=== PATIENT | male | born 1955 | race Caucasian/White ===

== ENCOUNTER 2022-04-10 23:06 | Inpatient (IN) ==
[2022-04-11] MEDS ORDERED: Melatonin 3 MG TABLET PO PRN (01:38)
[2022-04-11] MEDS ORDERED: Ondansetron 4 MG/2 ML VIAL IVP PRN (01:38)
[2022-04-11] MEDS ORDERED: Acetaminophen 325 MG TABLET PO PRN (01:38)
[2022-04-11] MEDS ORDERED: Naloxone 0.4 MG/ML INJ IVP PRN (01:38)
[2022-04-11] MEDS ORDERED: Dextrose Gel 15 GM/37.5 ML TUBE PO PRN ×2 (01:48)
[2022-04-11] MEDS ORDERED: D5% in Water 1,000 ML IVC PRN (01:48)
[2022-04-11] MEDS ORDERED: *HR* Dextrose 50 % in Water (Syg) 50 ML SYRINGE IVP PRN (01:48)
[2022-04-11] MEDS ORDERED: Thiamine (B-1) 100 MG in 0.9 % Sodium Chloride 50 ML IVPB STA (01:50)
[2022-04-11] MEDS ORDERED: *HR* LORazepam 2 MG/ML VIAL IVP PRN ×3 (01:50)
[2022-04-11] MEDS ORDERED: 0.9 % Sodium Chloride 1,000 ML IVC SCH (03:15)
[2022-04-11] MEDS: Calcium Gluconate 1gm/50mL 1 GM/50 ML BAG IVPB SCH ×2 (03:36→04:46)
[2022-04-11] MEDS: 0.9 % Sodium Chloride 1,000 ML IVC SCH ×2 (04:46→20:50)
[2022-04-11 04:47] LABS: INR 0.9; Prothrombin Time 10.2 Seconds (9.4-12.1)
[2022-04-11 04:49] LABS: Activated Partial Thrombo Time 26.8 Seconds (26.0-36.0)
[2022-04-11 04:58] LABS: % Iron Saturation 36 % (20-55); Alanine Aminotransferase 105 Units/L (7-52); Albumin 3.7 g/dL (3.5-5.7); Albumin/Globulin Ratio 1.5 (1.1-2.2); Alkaline Phosphatase 73 Units/L (34-104); Aspartate Amino Transferase 250 Units/L (13-39); BUN/Creatinine Ratio 9 (6-26); Bilirubin,Total 0.5 mg/dL (0.3-1.0); Blood Urea Nitrogen 6 mg/dL (8-23); Calcium 8.6 mg/dL (8.6-10.3); Carbon Dioxide 20 mEq/L (23-29); Chloride 99 mEq/L (98-107); Creatine Kinase 447 Units/L (30-223); Globulin 2.5 g/dL (2.4-3.5); Glucose 86 mg/dL (70-105); Iron 95 mcg/dL (65-175); Magnesium 1.6 mg/dL (1.6-2.6); Osmolality,Calculated 271 (280-300); Phosphorous 3.2 mg/dL (2.7-4.5); Potassium 4.5 mEq/L (3.5-5.1); Sodium 132 mEq/L (136-145); Total Protein 6.2 g/dL (6.4-8.9); Transferrin 187 mg/dL (203-362); eGFR For African Americans > 60 (> 60); eGFR For Non-African Americans > 60 (> 60)
[2022-04-11 05:16] LABS: Ferritin 561 ng/mL (20-250)
[2022-04-11 05:20] LABS: Bilirubin,Urine Negative (Negative); Blood,Urine Negative (Negative); Clarity,Urine Clear (Clear); Color,Urine Colorless (Yellow); Glucose,Urine (UA) Normal (Normal); Ketones,Urine Negative (Negative); Leukocyte Esterase,Urine Negative (Negative); Nitrite,Urine Negative (Negative); Protein,Urine Negative (Neg-Trace); Specific Gravity,Urine 1.006 (1.010-1.025); Urobilinogen,Urine Normal (Normal)
[2022-04-11 05:24] LABS: Folate 14.5 ng/mL (3.0-16.0)
[2022-04-11 06:24] LABS: Basophils % 0.3 %; Eosinophils % 0.3 %; Hematocrit 35.7 % (37.5-50.1); Hemoglobin 12.3 g/dL (12.9-16.9); Immature Granulocytes % 0.7 % (0-4); Lymphocytes # 1.4 K/mcL (0.6-4.6); Lymphocytes % 11.5 %; Mean Corpuscular HGB Conc 34.5 g/dL (31.6-35.5); Mean Corpuscular Hemoglobin 31.5 pg (28.0-33.3); Mean Corpuscular Volume 91.5 fL (83.0-100.0); Mean Platelet Volume 10.1 fL (9.4-12.4); Monocytes # 0.7 K/mcL (0.0-1.3); Monocytes % 5.9 %; Neutrophils # 9.6 K/mcL (1.6-8.9); Platelet Count 209 K/mcL (140-400); Red Cell Distribution Width 12.1 % (11.5-14.5); Segmented Neutrophils % 81.3 %; White Blood Count 11.8 K/mcL (4.3-11.1)
[2022-04-11 07:06] LABS: Hepatitis B Surface Antigen Nonreactive (Nonreactive)
[2022-04-11 07:35] LABS: Hepatitis B Core IgM Nonreactive (Nonreactive)
[2022-04-11 07:36] LABS: Hepatitis C Virus Antibody Nonreactive (Nonreactive)
[2022-04-11 07:37] LABS: Hepatitis A Antibody IgM Nonreactive (Nonreactive)
[2022-04-11] MEDS: Vitamin B Complex/Vit C/Vit E 1 EACH TABLET PO SCH (08:59)
[2022-04-11] MEDS: Folic Acid 1 MG TABLET PO SCH (09:00)
[2022-04-11] MEDS: NIFEdipine XL (24 HR) 30 MG TAB.ER.24 PO SCH (09:00)
[2022-04-11] MEDS: Aspirin 81 MG TAB.CHEW PO SCH (09:00)
[2022-04-11] MEDS: Thiamine (B-1) 100 MG TABLET PO SCH (09:00)
[2022-04-11] MEDS: lisinopriL 20 MG TABLET PO SCH (09:00)
[2022-04-11] MEDS ORDERED: *HR* Metoprolol 5 MG/5 ML VIAL IVP ONE (14:09)
[2022-04-12 03:05] VITALS: O2SAT 97
[2022-04-12 05:48] LABS: Basophils % 0.6 %; Eosinophils # 0.1 K/mcL (0.0-0.6); Eosinophils % 1.5 %; Hematocrit 33.3 % (37.5-50.1); Hemoglobin 11.1 g/dL (12.9-16.9); Immature Granulocytes % 0.4 % (0-4); Lymphocytes % 18.4 %; Mean Corpuscular HGB Conc 33.3 g/dL (31.6-35.5); Mean Corpuscular Hemoglobin 30.7 pg (28.0-33.3); Mean Corpuscular Volume 92.2 fL (83.0-100.0); Mean Platelet Volume 9.8 fL (9.4-12.4); Monocytes # 0.7 K/mcL (0.0-1.3); Monocytes % 12.5 %; Neutrophils # 3.6 K/mcL (1.6-8.9); Platelet Count 172 K/mcL (140-400); Red Blood Count 3.61 M/mcL (4.19-5.50); Red Cell Distribution Width 12.3 % (11.5-14.5); Segmented Neutrophils % 66.6 %
[2022-04-12 05:49] LABS: White Blood Count 5.4 K/mcL (4.3-11.1)
[2022-04-12 06:24] LABS: Alanine Aminotransferase 78 Units/L (7-52); Albumin 3.6 g/dL (3.5-5.7); Albumin/Globulin Ratio 1.6 (1.1-2.2); Alkaline Phosphatase 72 Units/L (34-104); Aspartate Amino Transferase 157 Units/L (13-39); BUN/Creatinine Ratio 12 (6-26); Bilirubin,Total 0.8 mg/dL (0.3-1.0); Blood Urea Nitrogen 9 mg/dL (8-23); Calcium 8.8 mg/dL (8.6-10.3); Carbon Dioxide 25 mEq/L (23-29); Chloride 100 mEq/L (98-107); Globulin 2.3 g/dL (2.4-3.5); Glucose 76 mg/dL (70-105); Osmolality,Calculated 277 (280-300); Potassium 4.3 mEq/L (3.5-5.1); Sodium 135 mEq/L (136-145); Total Protein 5.9 g/dL (6.4-8.9); eGFR For African Americans > 60 (> 60); eGFR For Non-African Americans > 60 (> 60)
[2022-04-12] MEDS: Folic Acid 1 MG TABLET PO SCH (08:26)
[2022-04-12] MEDS: Vitamin B Complex/Vit C/Vit E 1 EACH TABLET PO SCH (08:26)
[2022-04-12] MEDS: Aspirin 81 MG TAB.CHEW PO SCH (08:26)
[2022-04-12] MEDS: lisinopriL 20 MG TABLET PO SCH (08:26)
[2022-04-12] MEDS: NIFEdipine XL (24 HR) 30 MG TAB.ER.24 PO SCH (08:26)
[2022-04-12] MEDS: Thiamine (B-1) 100 MG TABLET PO SCH (08:29)
[2022-04-12] MEDS: 0.9 % Sodium Chloride 1,000 ML IVC SCH (10:49)
[2022-04-12 15:42] VITALS: BP 118/70; PULSE 91; TEMP 97.9
== END 2022-04-12 17:24 | disposition home or self-care (01) | DRG 897 ==
LOC: 3BNU → SUATTDRO 04-11 01:32
PROVIDERS: ADMIT Internal Medicine; ATTEND Registered Nurse

== ENCOUNTER 2022-05-02 21:07 | Inpatient (IN) ==
[2022-05-03] MEDS ORDERED: *HR* LORazepam 2 MG/ML VIAL IVP ONE (01:23)
[2022-05-03] MEDS ORDERED: Melatonin 3 MG TABLET PO PRN (01:26)
[2022-05-03] MEDS ORDERED: Ondansetron ODT 4 MG TAB.RAPDIS SL PRN (01:26)
[2022-05-03] MEDS ORDERED: Naloxone 0.4 MG/ML INJ IVP PRN (01:26)
[2022-05-03] MEDS ORDERED: *HR* LORazepam 2 MG/ML VIAL ONE (01:29)
[2022-05-03] MEDS ORDERED: *HR* LORazepam 2 MG/ML VIAL IVP PRN (01:33)
[2022-05-03 02:14] LABS: BUN/Creatinine Ratio 8 (6-26); Blood Urea Nitrogen 6 mg/dL (8-23); Calcium 8.3 mg/dL (8.6-10.3); Carbon Dioxide 21 mEq/L (23-29); Chloride 83 mEq/L (98-107); Glucose 120 mg/dL (70-105); Osmolality,Calculated 239 (280-300); Potassium 4.3 mEq/L (3.5-5.1); Sodium 115 mEq/L (136-145); eGFR For African Americans > 60 (> 60); eGFR For Non-African Americans > 60 (> 60)
[2022-05-03] MEDS ORDERED: 0.9 % Sodium Chloride 1,000 ML IVC SCH ×3 (02:30→19:48)
[2022-05-03] MEDS ORDERED: levETIRAcetam 1,000 MG in 0.9 % Sodium Chloride 100 ML IVPB ONE (03:04)
[2022-05-03] MEDS: *HR* LORazepam 2 MG/ML VIAL IVP PRN ×6 (03:43→23:37)
[2022-05-03] MEDS: Thiamine (B-1) 100 MG in 0.9 % Sodium Chloride 50 ML IVPB SCH (03:43)
[2022-05-03 04:15] LABS: Albumin 3.7 g/dL (3.5-5.7); Albumin/Globulin Ratio 1.6 (1.1-2.2); Bilirubin,Direct 0.5 mg/dL (0.0-0.2); Bilirubin,Indirect 1.4 mg/dL (0.0-1.0); Bilirubin,Total 1.9 mg/dL (0.3-1.0); Globulin 2.3 g/dL (2.4-3.5)
[2022-05-03 06:53] LABS: Magnesium 1.8 mg/dL (1.6-2.6)
[2022-05-03] MEDS: Folic Acid 1 MG TABLET PO SCH (07:36)
[2022-05-03] MEDS ORDERED: Thiamine (B-1) 100 MG TABLET PO SCH (09:00)
[2022-05-03 10:31] LABS: Hematocrit 33.4 % (37.5-50.1); Mean Corpuscular HGB Conc 35.9 g/dL (31.6-35.5); Mean Corpuscular Hemoglobin 31.7 pg (28.0-33.3); Mean Corpuscular Volume 88.4 fL (83.0-100.0); Mean Platelet Volume 9.8 fL (9.4-12.4); Platelet Count 171 K/mcL (140-400); Red Blood Count 3.78 M/mcL (4.19-5.50); Red Cell Distribution Width 12.1 % (11.5-14.5); White Blood Count 14.5 K/mcL (4.3-11.1)
[2022-05-03 10:40] LABS: Prothrombin Time 11.2 Seconds (9.4-12.1)
[2022-05-03 11:08] LABS: Uric Acid 6.8 mg/dL (2.3-7.6)
[2022-05-03 13:27] LABS: Thyroid Stimulating Hormone 2.102 mcIU/mL (0.340-5.600)
[2022-05-03 16:32] LABS: Sodium, Urine 52.6 mEq/L
[2022-05-04 03:55] LABS: Basophils % 0.2 %; Hematocrit 32.3 % (37.5-50.1); Hemoglobin 11.4 g/dL (12.9-16.9); Immature Granulocytes % 0.6 % (0-4); Lymphocytes # 0.8 K/mcL (0.6-4.6); Lymphocytes % 7.2 %; Mean Corpuscular HGB Conc 35.3 g/dL (31.6-35.5); Mean Corpuscular Hemoglobin 31.4 pg (28.0-33.3); Mean Platelet Volume 10.2 fL (9.4-12.4); Monocytes # 0.9 K/mcL (0.0-1.3); Monocytes % 7.5 %; Neutrophils # 9.8 K/mcL (1.6-8.9); Platelet Count 165 K/mcL (140-400); Red Blood Count 3.63 M/mcL (4.19-5.50); Red Cell Distribution Width 12.2 % (11.5-14.5); Segmented Neutrophils % 84.5 %; White Blood Count 11.5 K/mcL (4.3-11.1)
[2022-05-04 04:10] LABS: BUN/Creatinine Ratio 10 (6-26); Blood Urea Nitrogen 6 mg/dL (8-23); Calcium 8.5 mg/dL (8.6-10.3); Carbon Dioxide 20 mEq/L (23-29); Chloride 90 mEq/L (98-107); Glucose 88 mg/dL (70-105); Magnesium 1.9 mg/dL (1.6-2.6); Osmolality,Calculated 251 (280-300); Potassium 3.7 mEq/L (3.5-5.1); Sodium 122 mEq/L (136-145); eGFR For African Americans > 60 (> 60); eGFR For Non-African Americans > 60 (> 60)
[2022-05-04] MEDS: *HR* LORazepam 2 MG/ML VIAL IVP PRN (04:27)
[2022-05-04] MEDS: Folic Acid 1 MG TABLET PO SCH (09:13)
[2022-05-04] MEDS: Thiamine (B-1) 100 MG in 0.9 % Sodium Chloride 50 ML IVPB SCH (09:27)
[2022-05-04] MEDS: *HR* Heparin 5,000 UNIT/ML VIAL SQ SCH (18:09)
[2022-05-04] MEDS ORDERED: 0.9 % Sodium Chloride 1,000 ML IVC SCH (19:30)
[2022-05-05] MEDS: *HR* LORazepam 2 MG/ML VIAL IVP PRN ×2 (02:14→14:45)
[2022-05-05 03:27] LABS: Basophils % 0.3 %; Eosinophils % 0.2 %; Hematocrit 34.7 % (37.5-50.1); Hemoglobin 11.9 g/dL (12.9-16.9); Immature Granulocytes % 0.8 % (0-4); Lymphocytes # 1.3 K/mcL (0.6-4.6); Lymphocytes % 10.1 %; Mean Corpuscular HGB Conc 34.3 g/dL (31.6-35.5); Mean Corpuscular Hemoglobin 31.5 pg (28.0-33.3); Mean Corpuscular Volume 91.8 fL (83.0-100.0); Mean Platelet Volume 10.4 fL (9.4-12.4); Monocytes # 1.3 K/mcL (0.0-1.3); Monocytes % 10.2 %; Neutrophils # 10.2 K/mcL (1.6-8.9); Platelet Count 173 K/mcL (140-400); Red Blood Count 3.78 M/mcL (4.19-5.50); Red Cell Distribution Width 12.3 % (11.5-14.5); Segmented Neutrophils % 78.4 %
[2022-05-05 03:50] LABS: BUN/Creatinine Ratio 10 (6-26); Blood Urea Nitrogen 7 mg/dL (8-23); Calcium 8.8 mg/dL (8.6-10.3); Carbon Dioxide 21 mEq/L (23-29); Chloride 95 mEq/L (98-107); Glucose 76 mg/dL (70-105); Osmolality,Calculated 269 (280-300); Potassium 3.5 mEq/L (3.5-5.1); Sodium 131 mEq/L (136-145); eGFR For African Americans > 60 (> 60); eGFR For Non-African Americans > 60 (> 60)
[2022-05-05] MEDS: *HR* Heparin 5,000 UNIT/ML VIAL SQ SCH ×2 (05:44→18:36)
[2022-05-05 08:22] LABS: Alanine Aminotransferase 28 Units/L (7-52); Albumin 3.7 g/dL (3.5-5.7); Albumin/Globulin Ratio 1.4 (1.1-2.2); Alkaline Phosphatase 77 Units/L (34-104); Aspartate Amino Transferase 69 Units/L (13-39); Bilirubin,Direct 0.4 mg/dL (0.0-0.2); Bilirubin,Indirect 0.7 mg/dL (0.0-1.0); Bilirubin,Total 1.1 mg/dL (0.3-1.0); Globulin 2.6 g/dL (2.4-3.5); Total Protein 6.3 g/dL (6.4-8.9)
[2022-05-05] MEDS: Folic Acid 1 MG TABLET PO SCH (08:36)
[2022-05-05] MEDS: Thiamine (B-1) 100 MG TABLET PO SCH (08:36)
[2022-05-05 18:58] VITALS: TEMP 98.4
[2022-05-06] MEDS: *HR* Heparin 5,000 UNIT/ML VIAL SQ SCH ×2 (05:25→17:26)
[2022-05-06 08:41] LABS: BUN/Creatinine Ratio 11 (6-26); Blood Urea Nitrogen 7 mg/dL (8-23); Calcium 8.9 mg/dL (8.6-10.3); Carbon Dioxide 24 mEq/L (23-29); Chloride 98 mEq/L (98-107); Glucose 90 mg/dL (70-105); Osmolality,Calculated 274 (280-300); Potassium 3.6 mEq/L (3.5-5.1); Sodium 133 mEq/L (136-145); eGFR For African Americans > 60 (> 60); eGFR For Non-African Americans > 60 (> 60)
[2022-05-06] MEDS: Folic Acid 1 MG TABLET PO SCH (09:35)
[2022-05-06] MEDS: Thiamine (B-1) 100 MG TABLET PO SCH (09:35)
[2022-05-06 10:28] VITALS: BP 131/82; PULSE 87; O2SAT 95
[2022-05-06 14:35] LABS: Influenza A PCR Negative (Negative); Influenza B PCR Negative (Negative); Resp. Syncytial Virus PCR Negative (Negative)
[2022-05-06 15:14] LABS: SARS-CoV-2 by PCR (In House) Negative (Negative)
== END 2022-05-06 21:40 | DRG 640 ==
LOC: 2NNU → SUATTDRO 05-03 09:54 → 3BNU 05-05 12:36
PROVIDERS: ADMIT Internal Medicine; ATTEND Internal Medicine